=== PATIENT | male | born 1990 | race Caucasian/White ===

== ENCOUNTER 2018-03-12 15:51 | Emergency (ER) | payer OTHER, SELFPAY ==
[2018-03-12 16:02] VITALS: BP 138/86; PULSE 91; RESP 15; TEMP 37.1; O2SAT 98; BMI 25.0
--- NOTE | 2018-03-12 17:51 | ED_ITS ---
HPI - URI/Sore Throat General Chief Complaint: Upper Respiratory Symptoms Stated Complaint: THROAT SWELLING Time Seen by Provider: 03/12/18 17:51 Source: patient Mode of arrival: ambulatory Limitations: no limitations History of Present Illness HPI Narrative: This generally healthy 27-year-old male comes in today due to recurrent tonsillitis. He states that he has gotten this 1 to 2 times a year every year for the last 4 years. He has not had a consistent primary care provider so states never referred to an eating disorder specialist. He states that he has had about 1 week history of what sore throat more on the left , with swollen glands, difficult to swallow. He states that he was sent by primary care office due to concern that he he might have a neck mass or need a scan. He states that he has not had any fever. He states that he has had a little bit of congestion in his ears but denies any sinus pain. He has not had any cough or nasal symptoms. He states that he is not having any difficulty swallowing food unless he eats something very thick, like a big sandwich. He is not having any difficulty opening and closing his mouth. He does not feel like his throat is obstructed or feel short of breath. He states actually that he does not feel sick at all. He states he has never had an abscess or needed IV antibiotics. He states that typically this will be treated with antibiotic, usually test negative for strep. He states that steroids have been helpful as well. Related Data Previous Rx's Medication Instructions Recorded clindamycin HCl 300 mg PO Q6H 10 Days #40 cap 03/12/18 prednisone 30 mg PO DAILY #6 tab 03/12/18 Allergies Allergy/AdvReac Type Severity Reaction Status Date / Time No Known Drug Allergies Allergy Verified 03/12/18 16:02 Review of Systems Review of Systems All systems reviewed & are unremarkable except as noted in HPI and below PFSH Medical History Recurrent tonsillitis (Chronic) Social History Smoking Status: Current every day smoker Exam Narrative Exam Narrative: GENERAL APPEARANCE: Patient sitting comfortably, in no distress. HEAD: No sinus TTP. EYES: PERRL, EOMI. EARS: Normal auditory canals, TMS intact with normal light reflexes. ORAL CAVITY: Normal oropharynx. THROAT: Erythematous tonsils, left more enlarged than right, no exudate, no uvula deviation. NECK/THYROID: Neck supple, full range of motion, bilateral submandibular and caudal anterior cervical nodes noted, no posterior nodes LUNGS: Clear to auscultation bilaterally, no cough on exam. HEART: RRR without murmur, nl S1, S2, no S3 or S4. DERMATOLOGIC: No exanthem Initial Vital Signs Initial Vital Signs: Vital Signs Temperature 98.7 F 03/12/18 16:02 Pulse Rate 91 H 03/12/18 16:02 Respiratory Rate 15 03/12/18 16:02 Blood Pressure 138/86 H 03/12/18 16:02 Pulse Oximetry 98 03/12/18 16:02 Course Additional Information: This patient was sent for possible imaging studies however appears well today. He does not have signs of airway obstruction, no difficulty managing secretions, no trismus or dyspnea. Reviewed with Dr. Fernandez who took call from PCP office on [place]. She agrees that findings today do not warrant urgent imaging studies and reasonable to treat with oral medications. Patient would prefer this as well and was prescribed antibiotic and prednisone. He did agree to return if any acutely worsening symptoms. Advised follow-up with PCP to request a referral to ENT given that this has been recurrent for many years. This is not worse today than his previous episodes. Vital Signs - 8 hr 03/12/18 16:02 03/12/18 18:30 Temperature 98.7 F Pulse Rate 91 H 65 Respiratory Rate 15 16 Blood Pressure 138/86 H Blood Pressure [Left Arm] 125/77 H Pulse Oximetry 98 100 Discharge Plan Departure Patient Disposition: Home, Self-Care Clinical Impression: Acute tonsillitis Discharge Date/Time: 03/12/18 18:20 Interventions: ED Discharge Assessment Last Done: 03/12/18 18:20 Instructions: DI for Pharyngitis/Tonsillopharyngitis -- Adult Activity Restrictions/Additional Instructions: You appear to have an inflamed tonsil on the left side and swollen glands, however you do not appear to have any problems with breathing or managing your airway today. It appears reasonable to treat this with oral antibiotics and steroids as you have done in the past, however if you have any new symptoms such as difficulty breathing, opening your mouth, feeling like your throat is blocked, or new symptoms such as fever, you should return here right away. Otherwise, please pick the antibiotic and steroid up that I have sent in for you and start them right away. Follow up with your primary care clinic in a few days to discuss a referral to an jewel bearing driller since this has recurred so many times. Here in town, I recommend Dr. Tripp at [facility]. Thank you for your patience with the long wait at our busy ER today Prescriptions: New clindamycin HCl 300 mg capsule 300 mg PO Q6H 10 Days Qty: 40 RF: 0 prednisone 20 mg tablet 30 mg PO DAILY Qty: 6 RF: 0 Referrals: [facility] [Outside]
[2018-03-12 18:30] VITALS: BP 125/77; PULSE 65; RESP 16; O2SAT 100
== END 2018-03-12 18:20 | disposition home or self-care (01) ==
PROVIDERS: Emergency Provider Internal Medicine
DX: J03.90 Acute tonsillitis, unspecified (principal)
CPT/HCPCS: 87880; 99282; 99283

== ENCOUNTER → 2018-03-19 15:41 | Outpatient (CLI) | payer OTHER, SELFPAY ==
--- NOTE | 2018-03-19 15:50 | DI.RAD.S_ITS ---
PROCEDURE: XR SOFT TISSUE NECK INDICATIONS: left sided neck swelling TECHNIQUE: 2 views of the neck were acquired. COMPARISON: None. FINDINGS: Airway: The airway appears patent. Soft tissues: Prevertebral soft tissues are normal in thickness. The epiglottis and aryepiglottic folds appear normal. No soft tissue gas. Bones: No suspicious bony lesions. Visualized cervical spine is normally aligned. IMPRESSION: Patent airway. No gross soft tissue abnormality. Dictated by: Grant Cota M.D. on 03/19/2018 at 16:05 Approved by: Grant Cota M.D. on 03/19/2018 at 16:06
== END ==
PROVIDERS: Family Provider Family Medicine; Visit Provider Physician Assistant
DX: R59.9 Enlarged lymph nodes, unspecified (principal)
CPT/HCPCS: 70360

== ENCOUNTER → 2021-04-23 11:02 | Outpatient (CLI) | payer OTHER, SELFPAY ==
[2021-04-23 19:47] LABS: Add Manual Diff / Slide Review NO; Basophils Absolute Auto 0 /uL (0-100); Eosinophils Absolute Auto 200 /uL (0-450); Hematocrit 42.9 % (41-53); Hemoglobin 14.6 g/dL (13.5-17.5); Lymphocytes Absolute Auto 1700 /uL (1100-4500); Lymphocytes Percent Auto 41.4 % (25-40); Mean Corpuscular HGB Conc 34.1 % (30-36); Mean Corpuscular Hemoglobin 32.5 PG (26-34); Mean Corpuscular Volume 95.2 fL (80-100); Monocytes Absolute Auto 500 /uL (0-900); Monocytes Percent Auto 11.5 % (3-14); Neutrophils Absolute Auto 1700 /uL (1500-7000); Neutrophils Percent Auto 41.1 % (50-75); Platelet Count 206 X10^3/uL (150-400); Red Blood Cell Count 4.51 X10^6/uL (4.5-5.9); Red Cell Distribution Width 12.1 % (11.6-14.8); White Blood Cell Count 4.1 X10^3/uL (4.5-11.0)
[2021-04-23 20:00] LABS: Alanine Aminotransferase 42 IU/L (<50); Albumin 4.6 g/dL (3.5-5.0); Albumin Globulin Ratio 1.4 (1.0-2.8); Alkaline Phosphatase 78 U/L (38-126); Aspartate Aminotransferase 35 IU/L (17-59); BUN Creatinine Ratio 16.4 (6-22); Bilirubin Total 0.4 mg/dL (0.2-1.3); Blood Urea Nitrogen 10 mg/dL (9-20); Calcium 9.1 mg/dL (8.4-10.2); Carbon Dioxide 26 mmol/L (22-32); Chloride 108 mmol/L (98-107); Cholesterol 236 mg/dL (140-199); Estimated Glomerular Filt Rate > 60.0 mL/min (>60); Globulin 3.4 g/dL (1.7-4.1); Glucose 90 mg/dL (70-100); HDL Cholesterol 45 mg/dL (40-60); HEMOLYSIS < 15 (0-50); LDL Cholesterol Calculated 115 mg/dL (<100); Potassium 4.1 mmol/L (3.4-5.1); Sodium 142 mmol/L (137-145); Triglycerides 381 mg/dL (35-150)
[2021-04-23 20:25] LABS: Thyroid Stimulating Hormone 1.78 uIU/mL (0.47-4.68)
[2021-04-23 20:42] LABS: HIV 1 & 2 Ab/Ag 4th Gen Combo NEGATIVE (NEGATIVE)
[2021-04-23 20:50] LABS: Urine N gonorrhoeae NOT DETECTED
[2021-04-23 21:28] LABS: Urine Chlamydia NOT DETECTED
[2021-04-25 02:31] LABS: Hepatitis B Core AB w/Reflex Negative (Negative)
[2021-04-25 05:57] LABS: RPR Screen Non Reactive (Non Reactive)
== END ==
PROVIDERS: Family Provider Family Medicine; PCP Family Medicine; Visit Provider Family Medicine
DX: Z00.01 Encounter for general adult medical examination with abnormal findings (principal); S03.42XA Sprain of jaw, left side, initial encounter; Z11.3 Encounter for screening for infections with a predominantly sexual mode of transmission; Z83.49 Family history of other endocrine, nutritional and metabolic diseases
CPT/HCPCS: 80053; 80061; 83036; 84443; 85025; 86592; 86704; 87389; 87491; 87522; 87591

== ENCOUNTER → 2023-01-30 11:26 | Outpatient (CLI) | payer OTHER, SELFPAY ==
[2023-01-30 20:12] LABS: Alanine Aminotransferase 51 IU/L (<50); Albumin 4.3 g/dL (3.5-5.0); Albumin Globulin Ratio 1.2 (1.0-2.8); Alkaline Phosphatase 80 U/L (38-126); Aspartate Aminotransferase 37 IU/L (17-59); BUN Creatinine Ratio 19.4 (6-22); Bilirubin Total 0.7 mg/dL (0.2-1.3); Blood Urea Nitrogen 12 mg/dL (9-20); Carbon Dioxide 24 mmol/L (22-32); Chloride 103 mmol/L (98-107); Cholesterol 226 mg/dL (140-199); Estimated Glomerular Filt Rate > 60 mL/min (>60); Globulin 3.7 g/dL (1.7-4.1); Glucose 94 mg/dL (70-100); HDL Cholesterol 39 mg/dL (40-60); HEMOLYSIS < 15 (0-50); LDL Cholesterol Calculated 119 mg/dL (<100); Potassium 4.7 mmol/L (3.4-5.1); Sodium 137 mmol/L (137-145); Triglycerides 342 mg/dL (35-150)
[2023-01-31 23:07] LABS: x Labcorp Estim. Avg Glu (eAG) 108 mg/dL (.); x Labcorp Hemoglobin A1c 5.4 % (4.8-5.6)
== END ==
PROVIDERS: Family Provider Family Medicine; PCP Physician Assistant; Visit Provider Physician Assistant
DX: I10 Essential (primary) hypertension (principal); Z83.49 Family history of other endocrine, nutritional and metabolic diseases
CPT/HCPCS: 80053; 80061; 83036

== ENCOUNTER → 2023-10-28 10:05 | Outpatient (CLI) | payer OTHER, SELFPAY ==
[2023-10-28 19:54] LABS: Alanine Aminotransferase 38 IU/L (<50); Albumin 4.2 g/dL (3.5-5.0); Albumin Globulin Ratio 1.2 (1.0-2.8); Alkaline Phosphatase 69 U/L (38-126); Aspartate Aminotransferase 34 IU/L (17-59); BUN Creatinine Ratio 17.5 (6-22); Bilirubin Total 1.1 mg/dL (0.2-1.3); Blood Urea Nitrogen 14 mg/dL (9-20); Calcium 9.3 mg/dL (8.4-10.2); Carbon Dioxide 30 mmol/L (22-32); Chloride 106 mmol/L (98-107); Cholesterol 234 mg/dL (140-199); Estimated Glomerular Filt Rate > 60 mL/min (>60); Globulin 3.4 g/dL (1.7-4.1); Glucose 78 mg/dL (70-100); HDL Cholesterol 44 mg/dL (40-60); HEMOLYSIS < 15 (0-50); LDL Cholesterol Calculated 130 mg/dL (<100); Sodium 141 mmol/L (137-145); Total Protein 7.6 g/dL (6.3-8.2); Triglycerides 298 mg/dL (35-150)
[2023-10-28 19:56] LABS: Hemoglobin A1C% w Est Avg Glu 5.1 % (4.0-6.0)
[2023-10-30 23:01] LABS: Hep C Virus Ab w/Reflex Quant NEGATIVE s/c (NEGATIVE)
[2023-10-30 23:40] LABS: HIV 1 & 2 Ab/Ag 4th Gen Combo NEGATIVE (NEGATIVE); Hepatitis B Surface Antigen NEGATIVE s/c (NEGATIVE)
== END ==
PROVIDERS: Family Provider Family Medicine; PCP Physician Assistant; Visit Provider Physician Assistant
DX: E78.5 Hyperlipidemia, unspecified (principal); Z83.49 Family history of other endocrine, nutritional and metabolic diseases; I10 Essential (primary) hypertension; Z11.3 Encounter for screening for infections with a predominantly sexual mode of transmission; Z79.899 Other long term (current) drug therapy; Z11.59 Encounter for screening for other viral diseases
CPT/HCPCS: 80053; 80061; 83036; 86803; 87340; 87389

== ENCOUNTER → 2024-08-10 15:00 | Outpatient (CLI) | payer OTHER, SELFPAY | PROVIDERS: Family Provider Family Medicine; PCP Physician Assistant; Visit Provider Physician Assistant | DX: J02.9 Acute pharyngitis, unspecified (principal) | CPT/HCPCS: 87070 ==

== ENCOUNTER → 2024-08-16 11:36 | Outpatient (CLI) | payer OTHER, SELFPAY ==
[2024-08-16 18:43] LABS: Hematocrit 44.2 % (41-53); Hemoglobin 15.2 g/dL (13.5-17.5); Mean Corpuscular HGB Conc 34.3 % (30-36); Mean Corpuscular Hemoglobin 33.1 PG (26-34); Mean Corpuscular Volume 96.5 fL (80-100); Platelet Count 250 X10^3/uL (150-400); Red Blood Cell Count 4.58 X10^6/uL (4.5-5.9); Red Cell Distribution Width 12.6 % (11.6-14.8); White Blood Cell Count 7.1 X10^3/uL (4.5-11.0)
[2024-08-16 18:48] LABS: Alanine Aminotransferase 50 IU/L (<50); Albumin 4.5 g/dL (3.5-5.0); Albumin Globulin Ratio 1.3 (1.0-2.8); Alkaline Phosphatase 69 U/L (38-126); Aspartate Aminotransferase 38 IU/L (17-59); BUN Creatinine Ratio 18.3 (6-22); Bilirubin Total 0.5 mg/dL (0.2-1.3); Blood Urea Nitrogen 15 mg/dL (9-20); Calcium 9.4 mg/dL (8.4-10.2); Carbon Dioxide 28 mmol/L (22-32); Chloride 106 mmol/L (98-107); Estimated Glomerular Filt Rate > 60 mL/min (>60); Globulin 3.5 g/dL (1.7-4.1); Glucose 93 mg/dL (70-100); HEMOLYSIS < 15 (0-50); Potassium 4.4 mmol/L (3.4-5.1); Sodium 139 mmol/L (137-145)
[2024-08-16 19:11] LABS: Neutrophils Absolute Manual 4047 /uL (3000-5900); Total Cells Counted 100
[2024-08-16 19:12] LABS: RBC Morphology Normal Morphology
[2024-08-16 19:20] LABS: Hepatitis B Surface Antigen NEGATIVE s/c (NEGATIVE)
[2024-08-16 19:44] LABS: HIV 1 & 2 Ab/Ag 4th Gen Combo NEGATIVE (NEGATIVE); Hep C Virus Ab w/Reflex Quant NEGATIVE s/c (NEGATIVE)
[2024-08-16 20:07] LABS: Urine N gonorrhoeae NOT DETECTED
[2024-08-16 20:10] LABS: Urine Chlamydia NOT DETECTED
[2024-08-18 05:15] LABS: RPR Screen Non Reactive (Non Reactive)
== END ==
PROVIDERS: Family Provider Family Medicine; PCP Physician Assistant; Visit Provider Physician Assistant
DX: Z11.3 Encounter for screening for infections with a predominantly sexual mode of transmission (principal); Z79.899 Other long term (current) drug therapy
CPT/HCPCS: 80053; 85025; 86592; 86695; 86696; 86803; 87340; 87389; 87491; 87591

== ENCOUNTER → 2024-09-07 11:00 | Outpatient (CLI) | payer OTHER, SELFPAY ==
[2024-09-07 18:35] LABS: Add Manual Diff / Slide Review NO; Basophils Absolute Auto 0 /uL (0-100); Basophils Percent Auto 0.5 % (0-2); Eosinophils Absolute Auto 200 /uL (0-450); Eosinophils Percent Auto 3.7 % (2-4); Hematocrit 41.2 % (41-53); Hemoglobin 14.4 g/dL (13.5-17.5); Lymphocytes Absolute Auto 2000 /uL (1100-4500); Lymphocytes Percent Auto 30.8 % (25-40); Mean Corpuscular HGB Conc 34.9 % (30-36); Mean Corpuscular Hemoglobin 32.9 PG (26-34); Mean Corpuscular Volume 94.4 fL (80-100); Monocytes Absolute Auto 800 /uL (0-900); Monocytes Percent Auto 12.6 % (3-14); Neutrophils Absolute Auto 3300 /uL (1500-7000); Neutrophils Percent Auto 52.4 % (50-75); Platelet Count 224 X10^3/uL (150-400); Red Blood Cell Count 4.37 X10^6/uL (4.5-5.9); Red Cell Distribution Width 12.3 % (11.6-14.8); White Blood Cell Count 6.3 X10^3/uL (4.5-11.0)
[2024-09-07 18:43] LABS: Alanine Aminotransferase 38 IU/L (<50); Albumin 4.4 g/dL (3.5-5.0); Albumin Globulin Ratio 1.3 (1.0-2.8); Alkaline Phosphatase 52 U/L (38-126); Aspartate Aminotransferase 30 IU/L (17-59); BUN Creatinine Ratio 19.1 (6-22); Bilirubin Total 0.9 mg/dL (0.2-1.3); Blood Urea Nitrogen 17 mg/dL (9-20); Calcium 9.2 mg/dL (8.4-10.2); Carbon Dioxide 31 mmol/L (22-32); Chloride 105 mmol/L (98-107); Cholesterol 209 mg/dL (140-199); Estimated Glomerular Filt Rate > 60 mL/min (>60); Globulin 3.5 g/dL (1.7-4.1); Glucose 92 mg/dL (70-100); HDL Cholesterol 28 mg/dL (40-60); HEMOLYSIS < 15 (0-50); LDL Cholesterol Calculated 141 mg/dL (<100); Potassium 4.1 mmol/L (3.4-5.1); Sodium 141 mmol/L (137-145); Total Protein 7.9 g/dL (6.3-8.2); Triglycerides 200 mg/dL (35-150)
== END ==
PROVIDERS: Family Provider Family Medicine; PCP Physician Assistant; Visit Provider Physician Assistant
DX: R74.8 Abnormal levels of other serum enzymes (principal); D72.820 Lymphocytosis (symptomatic); E78.5 Hyperlipidemia, unspecified; Z83.3 Family history of diabetes mellitus
CPT/HCPCS: 80053; 80061; 83036; 85025

== ENCOUNTER → 2025-03-01 14:17 | Outpatient (CLI) | payer OTHER, SELFPAY ==
[2025-03-01 21:20] LABS: Urine N gonorrhoeae NOT DETECTED
[2025-03-01 21:27] LABS: Urine Chlamydia NOT DETECTED
== END ==
PROVIDERS: Family Provider Family Medicine; PCP Physician Assistant; Visit Provider Physician Assistant
DX: Z20.2 Contact with and (suspected) exposure to infections with a predominantly sexual mode of transmission (principal)
CPT/HCPCS: 87491; 87591

== ENCOUNTER → 2025-03-02 13:39 | Outpatient (CLI) | payer OTHER, SELFPAY ==
[2025-03-03 03:21] LABS: HIV 1 & 2 Ab/Ag 4th Gen Combo NEGATIVE (NEGATIVE); Hep C Virus Ab w/Reflex Quant NEGATIVE s/c (NEGATIVE); Hepatitis B Surface Antigen NEGATIVE s/c (NEGATIVE)
[2025-03-04 02:08] LABS: HSV 1 IGG Non Reactive (Non Reactive); HSV 2 IGG Non Reactive (Non Reactive)
== END ==
PROVIDERS: Family Provider Family Medicine; PCP Physician Assistant; Visit Provider Physician Assistant
DX: Z11.3 Encounter for screening for infections with a predominantly sexual mode of transmission (principal)
CPT/HCPCS: 86592; 86695; 86696; 86803; 87340; 87389